=== PATIENT | female | born 1960 | race Caucasian/White ===

== ENCOUNTER 2023-12-13 10:47 | Outpatient (AMB) | payer OTHER, SELFPAY ==
--- NOTE | 2023-12-13 09:19 | MHC.PC.OV ---
Vital Signs 12/13/23 10:58 Height 5 ft 3.19 in Weight 181 lb 8 oz BMI 32.0 BP 114/70 Blood Pressure Location Lt brachial Position Sitting Respiration 16 Pulse 56 Pulse Source Pulse Oximeter Temp 98.2 F Temp Source Oral Pulse Oximetry (%) 98 Oxygen Delivery Method Room Air Intake Visit Reasons: V[facility] from [facility] Intake Note: New patient visit Allergies codeine Allergy (Unknown, Verified 12/13/23 09:20) lightheaded Medication List - Last Reconciled 12/13/23 by Chelo Krishnan PA-C anastrozole 1 mg PO DAILY cholecalciferol (vitamin D3) 25 mcg PO DAILY ferrous sulfate 325 mg PO DAILY ibuprofen 800 mg PO TID oxybutynin chloride ER 10 mg PO DAILY Tobacco use date assessed: 12/13/23 Dental Screening Dental Screen Date: 12/13/23 Did you have a dental visit in the last 12 months?: No Did you have a dental problem in the last 6 months where you did not have access to dental care?: No Was dental information given to patient?: Patient has dentist HPI VICENTE from [facility] HPI Details Patient is a 63-year-old female with a significant past medical history of bariatric surgery, anemia, overactive bladder, psoriasis presenting [facility] to [facility]. Last seen by myself 04/2023. She states since I last saw her she had a double mastectomy for new diagnosis of breast ca. She states 10/04/23 she had the double mastectomy. She states they found a left breast mass over the spring and it was found to be cancerous. She is following with breast center, Dr. Hayward and oncology Dr. Ba. She is now on anastrazole. She has an appointment with [facility] for her colonoscopy this month. Urology: On oxybutynin for oab. She rescheduled the u/s of her right renal mass to later this summer. She states that they told her it was just a collection of blood vessels. She did have MRI of abdomen which showed she states was overall normal. We have requested records today. She has a history of obesity and did have gastric by-pass surgery with success with her weight loss. She states that since she got diagnosed with a breast cancer and being placed on the anastrozole and quitting smoking in September she has gained weight. She is very uncomfortable with this weight gain and wants to lose it again. She states that she wants to go on Wegovy. She has family members on Wegovy and it was effective for them. She has tried countless diets, low carb, [place], Atkins etc.. She says that she has tried weight watchers in the past. She tries to remain very active. Colonoscopy: scheduled at [facility] Mammo: see above Bone density: scheduled this month Low dose chest ct: wnl, following annually at [facility] Medical History (Updated 12/13/23 @ 13:09 by Chelo Krishnan PA-C) Vitamin D deficiency Vitamin B deficiency Tobacco use Shingles RLS (restless legs syndrome) Psoriasis Overactive bladder Hyponatremia Eczema Candidiasis, cutaneous Family History (Updated 12/13/23 @ 09:24 by Amy Queen CMA) Other Breast cancer Social History (Updated 12/13/23 @ 10:56 by Amy Queen CMA) Housing: House Patient Tobacco Use Status: Former Tobacco user Cigarette Packs Per Day: 1 Years Smoked: 40 e-Cigarette/Vaping Use: Never Used service: No Current occupational status: employed Current occupation: corrugated fastener driver Current occupational exposures/hazards: No Cognitive needs: No Hearing needs: No Vision needs: Yes (glasses) Questionnaire PHQ-9 Over the last 2 weeks, how often have you been bothered by any of the following problems? 1. Little interest or pleasure in doing things: not at all 2. Feeling down, depressed, or hopeless: not at all 3. Trouble falling or staying asleep, or sleeping too much: not at all 4. Feeling tired or having little energy: not at all 5. Poor appetite or overeating: not at all 6. Feeling bad about yourself - or that you are a failure or have let yourself or your family down: not at all 7. Trouble concentrating on things, such as reading the newspaper or watching television: not at all 8. Moving or speaking so slowly that other people could have noticed. Or the opposite - being so fidgety or restless that you have been moving around a lot more than usual: not at all 9. Thoughts that you would be better off or of hurting yourself in some way: not at all Total score: 0 Depression Screening Interpretation: Negative Depression Screening Done: Yes 89096 - PHQ-9 Billing: Yes Source: Developed by Drs. Guero Freeman, Gigi Scott and colleagues, with an educational alecia from [employer]. Thrive Questionnaire I am a: Patient What is your living situation today?: I have a steady place to live Within the past 12 months, did the food you bought not last and you didn't have the money to get more?: Never true Within the past 12 months, did you worry whether your food would run out before you got money to buy more?: Never true Do you have trouble paying for medicines?: No Do you have trouble getting transportation to medical appointments?: No Do you have trouble paying your heating and electricity bill?: No Do you have trouble taking care of your child, family member or friend?: No Do you have trouble with day-to-day activities such as bathing, preparing meals, shopping, managing finances, etc.?: No Are you currently unemployed and looking for a job?: No Are you interested in more education?: No Please select the resources that you would like help with: None Currently or been in a relationship where the following occur: No concerns reported THRIVE Score: 0 AUDIT C Alcohol Use Questionnaire (AUDIT-C) 1. How often do you have a drink containing alcohol?: Monthly or less 2. How many drinks containing alcohol do you have on a typical day when you are drinking?: 1 or 2 3. How often do you have six or more drinks on one occasion?: Never Total Score: 1 Score Reviewed/Action Taken: Yes UMESH-7 AMB Questionnaire UMESH-7 Feeling nervous, anxious, or on edge: 0 = Not at all Not being able to stop or control worryin = Not at all Worrying too much about different things: 0 = Not at all Trouble relaxin = Not at all Being so restless that it is hard to sit still: 0 = Not at all Becoming easily annoyed or irritable: 0 = Not at all Feeling afraid as if something awful might happen: 0 = Not at all Total UMESH-7 score (0-4 normal; 5-9 mild; 10-14 moderate; 15-21 severe): 0 Source: Developed by Susannah Barron Kurt Kroenke and colleagues, with an educational alecia from [employer]. UMESH-7 Assessment Billing UMESH-7 Assessment Tool: UMESH-7 Assessment 50527 ACT Questionnaire In the past 4 weeks, how much of the time did your asthma keep you from getting as much done at work, school or at home?: A little of the time During the past 4 weeks, how often have you had shortness of breath?: 1-2 times a week During the past 4 weeks, how often did your asthma symptoms wake you up at night or earlier than usual in the morning?: Not at all During the past 4 weeks, how often have you had to use your rescue inhaler or nebulizer medication?: Once a week or less How would you rate your asthma control during the past 4 weeks?: Well controlled ACT Interpretation: Positive Score: 21 Physical exam (Primary Care) Vital Signs: Last Vital Signs Temp 98.2 F 12/13/23 10:58 Pulse 56 12/13/23 10:58 Resp 16 12/13/23 10:58 BP 114/70 12/13/23 10:58 Pulse Ox 98 12/13/23 10:58 Oxygen Delivery Method Room Air 12/13/23 10:58 BMI result Body Mass Index 32.0 BMI Assessment/Plan discussion: High (wegovy rx) BMI High, discussed plan: lifestyle, weight reduction, dietary and physical activity Tobacco/Smoking Status: Tobacco use Status Tobacco use date assessed 12/13/23 12/13/23 11:02 Patient Tobacco Use Status Former Tobacco user 12/13/23 11:02 e-Cigarette/Vaping Use Never Used 12/13/23 11:02 Depression Screening Interpretation: Negative Currently or been in a relationship where the following occur: No concerns reported Const Orientation/consciousness: patient oriented x3 HENMT Ears: hearing grossly normal bilaterally Neck Thyroid: Thyroid normal Lymphatic: no lymphadenopathy noted Resp Auscultation: clear to auscultation bilaterally Cardio Rate: regular rate Rhythm: regular rhythm Heart sounds: S1 normal heart sound present and S2 normal heart sound present GI Inspection: Yes normal to inspection Palpation (GI): Soft to palpation and Other GI palpation findings present (nontender, no cva tenderness) Auscultation: normoactive bowel sounds Rectal Exam - Female: deferred Skin General skin exam: no rashes or lesions noted Neuro General: patient oriented x3, gait normal and no focal motor deficits Assessment and Plan Assessment & Plan (1) Vitamin B deficiency: Code(s): E53.9 - Vitamin B deficiency, unspecified Plan: We will check labs today (2) S/P bariatric surgery: Code(s): Z98.84 - Bariatric surgery status Plan: She does have some weight gain again and attributes this to smoking cessation and anastrozole. We will start on Wegovy. We discussed risks and benefits and adverse effects at length of this medication including nausea, vomiting, pancreatitis, thyroid malignancies. (3) Breast cancer, left: Code(s): C50.912 - Malignant neoplasm of unspecified site of left female breast Qualifiers: Breast location: unspecified site of breast Estrogen receptor status: unspecified Patient sex: female Qualified Code(s): C50.912 - Malignant neoplasm of unspecified site of left female breast Plan: Currently following with Heme-Onc and the breast surgeons. Advised to get records. (4) DARSHANA (iron deficiency anemia): Code(s): D50.9 - Iron deficiency anemia, unspecified Qualifiers: Iron deficiency anemia type: unspecified iron deficiency Qualified Code(s): D50.9 - Iron deficiency anemia, unspecified Plan: We will check CBC. (5) Obesity (BMI 30.0-34.9): Code(s): E66.9 - Obesity, unspecified Plan: Discussed diet and lifestyle modifications. Return in a few months to be rechecked. I have started her on Wegovy. Patient understands and agrees with the plan. Orders: Orders Complete Blood Count Auto Diff Today C50.912 - Malignant neoplasm of unspecified site of left female breast, D50.9 - Iron deficiency anemia, unspecified, E53.9 - Vitamin B deficiency, unspecified, Z98.84 - Bariatric surgery status IRON PROFILE Today C50.912 - Malignant neoplasm of unspecified site of left female breast, D50.9 - Iron deficiency anemia, unspecified, E53.9 - Vitamin B deficiency, unspecified, Z98.84 - Bariatric surgery status Comprehensive [place]. Panel Fast Today C50.912 - Malignant neoplasm of unspecified site of left female breast, D50.9 - Iron deficiency anemia, unspecified, E53.9 - Vitamin B deficiency, unspecified, Z98.84 - Bariatric surgery status Lipid Panel Today C50.912 - Malignant neoplasm of unspecified site of left female breast, D50.9 - Iron deficiency anemia, unspecified, E53.9 - Vitamin B deficiency, unspecified, Z98.84 - Bariatric surgery status TSH reflex Free T4 Today C50.912 - Malignant neoplasm of unspecified site of left female breast, D50.9 - Iron deficiency anemia, unspecified, E53.9 - Vitamin B deficiency, unspecified, Z98.84 - Bariatric surgery status Vitamin B12 and Folate Today C50.912 - Malignant neoplasm of unspecified site of left female breast, D50.9 - Iron deficiency anemia, unspecified, E53.9 - Vitamin B deficiency, unspecified, Z98.84 - Bariatric surgery status Medications: New semaglutide (weight loss) (Dave) administer weeks 1 through 4 of therapy 0.25 mg (0.5 mL) subcut QWEEK 2 mL 0RF Coding Level of Care Code Est Pt Level 4 (71423) Complex EM visit Add On G2211 Diagnoses Vitamin B deficiency E53.9 S/P bariatric surgery Z98.84 Malignant neoplasm of left female breast, unspecified estrogen receptor status, unspecified site of breast C50.912 Breast location: unspecified site of breast Estrogen receptor status: unspecified Patient sex: female Iron deficiency anemia, unspecified iron deficiency anemia type D50.9 Iron deficiency anemia type: unspecified iron deficiency Obesity (BMI 30.0-34.9) E66.9 Additional Codes UMESH-7 Assessment Billing - UMESH-7 Assessment Tool: UMESH-7 Assessment 72502 ([id number])
[2023-12-13 10:58] VITALS: BP 114/70; PULSE 56; RESP 16; TEMP 36.8; O2SAT 98; BMI 32.0
== END 2023-12-13 11:54 | disposition home or self-care (01) ==
PROVIDERS: PCP Physician Assistant; Visit Provider Physician Assistant
DX: E53.9 Vitamin B deficiency, unspecified (principal); Z98.84 Bariatric surgery status; C50.912 Malignant neoplasm of unspecified site of left female breast; D50.9 Iron deficiency anemia, unspecified; E66.9 Obesity, unspecified
CPT/HCPCS: 99214; G2211

== ENCOUNTER 2023-12-26 08:40 | Outpatient (REF) | payer OTHER, SELFPAY ==
[2023-12-26 11:14] LABS: MANUAL DIFF FLAG NO
[2023-12-26 11:31] LABS: Basophils Absolute Auto 0.1 X10*3/uL (0.0-0.2); Basophils Percent Auto 0.6 % (0-2); Eosinophils Absolute Auto 0.1 X10*3/uL (0.0-0.4); Eosinophils Percent Auto 0.9 % (0-4); Hematocrit 38.9 % (37.0-47.0); Hemoglobin 12.9 g/dl (12.0-16.0); Imm Gran Abs Auto 0.03 X10*3/uL (0.00-0.03); Imm Gran Pct Auto 0.3 % (0.0-0.4); Lymphocytes Absolute Auto 0.9 X10*3/uL (1.2-4.9); Lymphocytes Percent Auto 9.8 % (20-40); Mean Corpuscular HGB Conc 33.2 g/dl (31.0-35.0); Mean Corpuscular Hemoglobin 30.9 pg (27.0-33.0); Mean Corpuscular Volume 93.3 fL (80.0-98.0); Mean Platelet Volume 10.9 fL (9.4-12.3); Monocytes Absolute Auto 0.7 X10*3/uL (0.1-1.2); Neutrophils Percent Auto 80.4 % (45-73); Platelet Count 236 X10*3/uL (160-400); Red Blood Count 4.17 X10*6/uL (4.20-5.50); Red Cell Distribution Width 14.8 % (11.0-16.0); White Blood Count 8.8 X10*3/uL (4.8-10.8)
[2023-12-26 12:02] LABS: Alanine Aminotransferase 20 U/L (0-31); Alkaline Phosphatase 76 U/L (39-117); Anion Gap 14 (12-20); Aspartate Amino Transferase 24 U/L (5-31); Bilirubin Total 0.6 mg/dL (0.0-1.0); Blood Urea Nitrogen 8 mg/dL (9-16); Carbon Dioxide 26 mmol/L (22-29); Chloride 103 mmol/L (96-108); Cholesterol 194 mg/dL (<200); Estimated Glomerular Filt Rate > 60; Glucose Fasting 87 mg/dL (60-99); HDL Cholesterol 85 mg/dL (>40); Iron 118 mcg/dL (30-160); LDL Cholesterol Calculated 93 mg/dL (<100); Percent Iron Saturation 32 % (15-50); Potassium 4.6 mmol/L (3.3-5.1); Sodium 138 mmol/L (135-145); Total Iron Binding Capacity 369 mcg/dL (228-428); Total Protein 7.2 g/dL (6.5-8.0); Triglycerides 81 mg/dL (<150); Unsaturated Iron Binding 251 ug/dL
[2023-12-26 12:22] LABS: TSH reflex Free T4 2.14 uIU/mL (0.32-4.0)
[2023-12-26 12:24] LABS: Folate 8.1 ng/mL (> or = 4.0); Vitamin B12 334 pg/mL (200-900)
== END 2023-12-26 08:41 | disposition home or self-care (01) ==
LOC: HO.WFDLDS 08:40
PROVIDERS: Visit Provider Physician Assistant
DX: E53.9 Vitamin B deficiency, unspecified (principal); D50.9 Iron deficiency anemia, unspecified; C50.912 Malignant neoplasm of unspecified site of left female breast; Z98.84 Bariatric surgery status
CPT/HCPCS: 36415; 80053; 80061; 82607; 82746; 83540; 84443; 85025

== ENCOUNTER 2024-03-07 10:00 | Outpatient (AMB) | payer OTHER, SELFPAY ==
--- NOTE | 2024-03-07 10:05 | A.OFFPC_ITS ---
Vital Signs 03/07/24 10:06 Height 5 ft 3.19 in Weight 173 lb BMI 30.5 BP 100/78 Blood Pressure Location Rt brachial Position Sitting Pulse Source Pulse Oximeter Pulse Oximetry (%) 99 Oxygen Delivery Method Room Air Intake Visit Reasons: weight loss med Intake Note: Follow up weight loss medication Allergies codeine Allergy (Unknown, Verified 03/07/24 10:06) lightheaded Medication List - Last Reconciled 03/07/24 by Chelo Krishnan PA-C anastrozole 1 mg PO DAILY cholecalciferol (vitamin D3) 25 mcg PO DAILY ferrous sulfate 325 mg PO DAILY hydroxyzine HCl 25 mg PO BEDTIME ibuprofen 800 mg PO TID oxybutynin chloride ER 10 mg PO DAILY Tobacco use date assessed: 12/13/23 Dental Screening Dental Screen Date: 12/13/23 HPI weight loss med HPI Details Patient is a 63-year-old female who presents today for a follow up. She has a significant past medical history of breast cancer, vitamin-D deficiency, gastric sleeve, overactive bladder presenting today to discuss her weight loss. She states that she is doing well with the Wegovy and wants to go up on the medication dosage. She is currently on 0.5 mg weekly. No adverse effects. Would like to go to 1 mg. She has lost 11 lb so far. Doing well with breast cancer treatment. States that she currently has expanders in and next month she will be getting implants. Has MRI booked for her kidney mass. She is doing this at [place]. Compliant with her iron supplements. 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 1. Little interest or pleasure in doing things: not at all 2. Feeling down, depressed, or hopeless: not at all 3. Trouble falling or staying asleep, or sleeping too much: nearly every day 4. Feeling tired or having little energy: nearly every day 5. Poor appetite or overeating: not at all 6. Feeling bad about yourself - or that you are a failure or have let yourself or your family down: not at all 7. Trouble concentrating on things, such as reading the newspaper or watching television: not at all 8. Moving or speaking so slowly that other people could have noticed. Or the opposite - being so fidgety or restless that you have been moving around a lot more than usual: not at all 9. Thoughts that you would be better off or of hurting yourself in some way: not at all Total score: 6 Source: Developed by Drs. Guero Freeman, Susannah Tellez, Gigi Montgomery and colleagues, with an educational alecia from [employer] [place]. Thrive Questionnaire Date Thrive assessed: 02/29/24 I am a: Patient What is your living situation today?: I have a steady place to live Within the past 12 months, did the food you bought not last and you didn't have the money to get more?: Never true Within the past 12 months, did you worry whether your food would run out before you got money to buy more?: Often true Do you have trouble paying for medicines?: Yes Do you have trouble getting transportation to medical appointments?: No Do you have trouble paying your heating and electricity bill?: No Do you have trouble taking care of your child, family member or friend?: No Do you have trouble with day-to-day activities such as bathing, preparing meals, shopping, managing finances, etc.?: No Are you currently unemployed and looking for a job?: No Are you interested in more education?: No Please select the resources that you would like help with: None Currently or been in a relationship where the following occur: No concerns reported THRIVE Score: 1 AUDIT C Alcohol Use Questionnaire (AUDIT-C) 2. How many drinks containing alcohol do you have on a typical day when you are drinking?: 1 or 2 Total Score: 0 UMESH-7 AMB Questionnaire UMESH-7 Feeling nervous, anxious, or on edge: 0 = Not at all Not being able to stop or control worryin = Not at all Worrying too much about different things: 0 = Not at all Trouble relaxin = Not at all Being so restless that it is hard to sit still: 0 = Not at all Becoming easily annoyed or irritable: 0 = Not at all Feeling afraid as if something awful might happen: 0 = Not at all Total UMESH-7 score (0-4 normal; 5-9 mild; 10-14 moderate; 15-21 severe): 0 Source: Developed by Drs. Guero Freeman, Susannah Tellez, Gigi Montgomery and colleagues, with an educational alecia from [employer] [place]. Physical exam (Primary Care) Vital Signs: Last Vital Signs BP 100/78 03/07/24 10:06 Pulse Ox 99 03/07/24 10:06 Oxygen Delivery Method Room Air 03/07/24 10:06 BMI result Body Mass Index 30.5 Tobacco/Smoking Status: Tobacco use Status Tobacco use date assessed 12/13/23 03/07/24 10:09 Patient Tobacco Use Status Former Tobacco user 03/07/24 10:09 e-Cigarette/Vaping Use Never Used 03/07/24 10:09 PHQ-9: PHQ-9 Score PHQ-9: Total score 6 03/07/24 10:41 Thrive Assessment: Date of Thrive Assessment Date Thrive assessed 02/29/24 03/07/24 10:09 Currently or been in a relationship where the following occur: No concerns reported Const Orientation/consciousness: patient oriented x3 HENMT Ears: hearing grossly normal bilaterally Neck Thyroid: Thyroid normal Lymphatic: no lymphadenopathy noted Resp Auscultation: clear to auscultation bilaterally Cardio Rate: regular rate Rhythm: regular rhythm Heart sounds: S1 normal heart sound present and S2 normal heart sound present GI Inspection: Yes normal to inspection Palpation (GI): Soft to palpation and Other GI palpation findings present (nontender, no cva tenderness) Auscultation: normoactive bowel sounds Rectal Exam - Female: deferred Skin General skin exam: no rashes or lesions noted Neuro General: patient oriented x3, gait normal and no focal motor deficits Coding Level of Care Code Est Pt Level 4 (27736) Complex EM visit Add On G2211 Diagnoses Obesity (BMI 30.0-34.9) E66.9 Iron deficiency anemia, unspecified iron deficiency anemia type D50.9 Iron deficiency anemia type: unspecified iron deficiency Renal mass N28.89 Assessment & Plan Assessment & Plan (1) Obesity (BMI 30.0-34.9): Code(s): E66.9 - Obesity, unspecified Category: Medical Plan: Increase Wegovy to 1 mg. (2) DARSHANA (iron deficiency anemia): Code(s): D50.9 - Iron deficiency anemia, unspecified Category: Medical Qualifiers: Iron deficiency anemia type: unspecified iron deficiency Qualified Code(s): D50.9 - Iron deficiency anemia, unspecified Plan: Labs ordered today. We will follow up pending test results. (3) Renal mass: Code(s): N28.89 - Other specified disorders of kidney and ureter Category: Medical Plan: Has MRI booked. Orders: Orders Basic Metabolic Panel Today E66.9 - Obesity, unspecified, Z98.84 - Bariatric surgery status Complete Blood Count Auto Diff Today D50.9 - Iron deficiency anemia, unspecified Medications: New semaglutide (weight loss) (Wegovy) 1 mg (0.5 mL) subcut QWEEK 2 mL 3RF semaglutide (weight loss) (Wegovy) 1 mg (0.5 mL) subcut QWEEK 2 mL 3RF
[2024-03-07 10:06] VITALS: BP 100/78; O2SAT 99; BMI 30.5
== END 2024-03-07 10:54 | disposition home or self-care (01) ==
LOC: HO.HMCFM 10:00
PROVIDERS: PCP Physician Assistant; Visit Provider Physician Assistant
DX: D50.9 Iron deficiency anemia, unspecified (principal); E66.9 Obesity, unspecified; N28.89 Other specified disorders of kidney and ureter; Z68.30 Body mass index [BMI] 30.0-30.9, adult

== ENCOUNTER → 2024-03-07 10:00 | Outpatient (BNVA) | payer OTHER, SELFPAY | PROVIDERS: PCP Physician Assistant; Visit Provider Physician Assistant | DX: E66.9 Obesity, unspecified (principal); D50.9 Iron deficiency anemia, unspecified; N28.89 Other specified disorders of kidney and ureter | CPT/HCPCS: 99212 ==

== ENCOUNTER 2024-03-07 11:11 | Outpatient (REF) | payer OTHER, SELFPAY ==
[2024-03-07 14:25] LABS: MANUAL DIFF FLAG NO
[2024-03-07 14:28] LABS: Basophils Percent Auto 0.8 % (0-2); Eosinophils Absolute Auto 0.1 X10*3/uL (0.0-0.4); Eosinophils Percent Auto 2.7 % (0-4); Hematocrit 42.7 % (37.0-47.0); Hemoglobin 13.9 g/dl (12.0-16.0); Imm Gran Abs Auto 0.01 X10*3/uL (0.00-0.03); Imm Gran Pct Auto 0.2 % (0.0-0.4); Lymphocytes Absolute Auto 1.6 X10*3/uL (1.2-4.9); Lymphocytes Percent Auto 30.5 % (20-40); Mean Corpuscular HGB Conc 32.6 g/dl (31.0-35.0); Mean Corpuscular Hemoglobin 29.9 pg (27.0-33.0); Mean Corpuscular Volume 91.8 fL (80.0-98.0); Mean Platelet Volume 10.9 fL (9.4-12.3); Monocytes Absolute Auto 0.5 X10*3/uL (0.1-1.2); Monocytes Percent Auto 10.1 % (2-11); Neutrophils Absolute Auto 2.9 x10*3/uL (2.0-8.3); Neutrophils Percent Auto 55.7 % (45-73); Platelet Count 264 X10*3/uL (160-400); Red Blood Count 4.65 X10*6/uL (4.20-5.50); Red Cell Distribution Width 13.8 % (11.0-16.0); White Blood Count 5.2 X10*3/uL (4.8-10.8)
[2024-03-07 14:49] LABS: Anion Gap 11 (12-20); Blood Urea Nitrogen 11 mg/dL (9-16); Calcium 9.8 mg/dL (8.4-10.2); Carbon Dioxide 25 mmol/L (22-29); Chloride 103 mmol/L (96-108); Estimated Glomerular Filt Rate > 60; Glucose Random 88 mg/dL (60-115); Sodium 135 mmol/L (135-145)
== END 2024-03-07 11:12 | disposition home or self-care (01) ==
LOC: HO.WFDLDS 11:11
PROVIDERS: Visit Provider Physician Assistant
DX: E66.9 Obesity, unspecified (principal); Z98.84 Bariatric surgery status; D50.9 Iron deficiency anemia, unspecified
CPT/HCPCS: 36415; 80048; 85025

== ENCOUNTER 2024-06-05 09:38 | Outpatient (AMB) | payer OTHER, SELFPAY ==
--- NOTE | 2024-06-05 09:47 | A.OFFPC_ITS ---
Vital Signs 06/05/24 09:54 Height 5 ft 3.19 in Weight 178 lb 8 oz BMI 31.4 BP 102/72 Blood Pressure Location Rt brachial Position Sitting Respiration 14 Pulse 58 Pulse Source Pulse Oximeter Pulse Oximetry (%) 99 Oxygen Delivery Method Room Air Intake Visit Reasons: labs Intake Note: Follow up lab work. Needs referral to plastic surgeon Dr Stephens at [facility]. Needs a refill on all medication. Dental Detail Representative Required: No Allergies codeine Allergy (Unknown, Verified 06/05/24 09:50) lightheaded Medication List - Last Reconciled 06/05/24 by Chelo Krishnan PA-C albuterol sulfate 90 mcg/actuation inhalation cholecalciferol (vitamin D3) 25 mcg PO DAILY ferrous sulfate 325 mg PO DAILY hydroxyzine HCl 25 mg PO BEDTIME ibuprofen 800 mg PO TID oxybutynin chloride ER 10 mg PO DAILY Tobacco use date assessed: 06/05/24 Dental Screening Dental Screen Date: 12/13/23 HPI labs HPI Details Patient is a 63-year-old female who presents today for a follow up. She has a significant past medical history of breast cancer, vitamin-D deficiency, gastric sleeve, overactive bladder presenting today to discuss her weight loss. General: She states that she was doing well with the Wegovy but insurance denied at the new year. She is filling out the questionaire and we will resubmit it. She lost a total of 18 lbs with this. She has a history of obesity and did have gastric by-pass surgery with success with her weight loss. She states that since she got diagnosed with a breast ca ncer and being placed on the anastrozole and quitting smoking in September she has gained weight. She is very uncomfortable with this weight gain and wants to lose it again. She states that she wants to go on Wegovy. She has family members on [employer] Salongovy and it was effective for them. She has tried countless diets, low carb, [place], Atkins etc.. She says that she has tried weight watchers in the past. She tries to remain very active. Breast: Doing well with breast cancer treatment. States that she currently has expanders in and is getting them filled. At the end of August they are tentatively planning implants. She would also like to get the excess skin of her stomach removed. When she had gastric bypass she lost a significant amount of weight which did leave her with loose skin. She often gets yeast infections under her pannus. Urology: Had MRI booked for her kidney mass but had to have it rescheduled due to her breast surgeries. She is doing this at [place]. Heme: Compliant with her iron supplements. Colonoscopy: scheduled for this spring Low dose chest ct: UTD, follows at [facility] Medical History (Updated 06/05/24 @ 10:17 by Chelo Krishnan PA-C) Vitamin D deficiency Vitamin B deficiency Tobacco use Shingles RLS (restless legs syndrome) Psoriasis Overactive bladder Hyponatremia Eczema Candidiasis, cutaneous Family History Other Breast cancer Social History (Updated 06/05/24 @ 09:54 by Amy Queen CMA) Housing: House Alcohol intake: current Comment: once in awhile three drinks a year Patient Tobacco Use Status: Current everyday Tobacco user Cigarette Packs Per Day: 0.5 Years Smoked: 40 e-Cigarette/Vaping Use: Never Used Second Hand Smoke Exposure: No service: No Current occupational status: employed Current occupation: parts delivery driver Current occupational exposures/hazards: No Cognitive needs: No Hearing needs: No Vision needs: Yes (glasses) Questionnaire PHQ-9 Over the last 2 weeks, how often have you been bothered by any of the following problems? 1. Little interest or pleasure in doing things: not at all 2. Feeling down, depressed, or hopeless: not at all 3. Trouble falling or staying asleep, or sleeping too much: nearly every day 4. Feeling tired or having little energy: nearly every day 5. Poor appetite or overeating: not at all 6. Feeling bad about yourself - or that you are a failure or have let yourself or your family down: not at all 7. Trouble concentrating on things, such as reading the newspaper or watching television: not at all 8. Moving or speaking so slowly that other people could have noticed. Or the opposite - being so fidgety or restless that you have been moving around a lot more than usual: not at all 9. Thoughts that you would be better off or of hurting yourself in some way: not at all Total score: 6 Depression Screening Interpretation: Positive Depression Screening Follow-up: Existing condition and New Medication prescribed Depression Screening Done: Yes 99540 - PHQ-9 Billing: Yes Source: Developed by Drs. Guero Freeman, Susannah Tellez, Gigi Montgomery and colleagues, with an educational alecia from [employer]. Thrive Questionnaire Date Thrive assessed: 06/05/24 I am a: Patient What is your living situation today?: I have a steady place to live Within the past 12 months, did the food you bought not last and you didn't have the money to get more?: Never true Within the past 12 months, did you worry whether your food would run out before you got money to buy more?: Never true Do you have trouble paying for medicines?: No Do you have trouble getting transportation to medical appointments?: No Do you have trouble paying your heating and electricity bill?: No Do you have trouble taking care of your child, family member or friend?: No Do you have trouble with day-to-day activities such as bathing, preparing meals, shopping, managing finances, etc.?: No Are you currently unemployed and looking for a job?: No Are you interested in more education?: No Please select the resources that you would like help with: None Currently or been in a relationship where the following occur: No concerns reported THRIVE Score: 0 AUDIT C Alcohol Use Questionnaire (AUDIT-C) 1. How often do you have a drink containing alcohol?: Monthly or less 2. How many drinks containing alcohol do you have on a typical day when you are drinking?: 1 or 2 3. How often do you have six or more drinks on one occasion?: Never Total Score: 1 UMESH-7 AMB Questionnaire UMESH-7 Date UMESH - 7 assessed: 06/05/24 Feeling nervous, anxious, or on edge: 0 = Not at all Not being able to stop or control worryin = Not at all Worrying too much about different things: 0 = Not at all Trouble relaxin = Not at all Being so restless that it is hard to sit still: 0 = Not at all Becoming easily annoyed or irritable: 0 = Not at all Feeling afraid as if something awful might happen: 0 = Not at all Total UMESH-7 score (0-4 normal; 5-9 mild; 10-14 moderate; 15-21 severe): 0 Source: Developed by Drs. Guero Freeman, Susannah Tellez, Gigi Montgomery and colleagues, with an educational alecia from [employer]. UMESH-7 Assessment Billing UMESH-7 Assessment Tool: UMESH-7 Assessment 59584 Physical exam (Primary Care) Vital Signs: Last Vital Signs Pulse 58 06/05/24 09:54 Resp 14 06/05/24 09:54 BP 102/72 06/05/24 09:54 Pulse Ox 99 06/05/24 09:54 Oxygen Delivery Method Room Air 06/05/24 09:54 BMI result Body Mass Index 31.4 Tobacco/Smoking Status: Tobacco use Status Tobacco use date assessed 06/05/24 06/05/24 09:58 Patient Tobacco Use Status Current everyday Tobacco 06/05/24 09:58 e-Cigarette/Vaping Use Never Used 06/05/24 09:54 PHQ-9: PHQ-9 Score PHQ-9: Total score 6 06/05/24 10:11 Depression Screening Interpretation: Positive Depression Screening Follow-up: Existing condition and New Medication prescribed Thrive Assessment: Date of Thrive Assessment Date Thrive assessed 06/05/24 06/05/24 09:58 Currently or been in a relationship where the following occur: No concerns reported Const Orientation/consciousness: patient oriented x3 HENMT Ears: hearing grossly normal bilaterally Neck Thyroid: Thyroid normal Lymphatic: no lymphadenopathy noted Resp Auscultation: clear to auscultation bilaterally Cardio Rate: regular rate Rhythm: regular rhythm Heart sounds: S1 normal heart sound present and S2 normal heart sound present GI Inspection: Yes normal to inspection Palpation (GI): Soft to palpation and Other GI palpation findings present (nontender, no cva tenderness) Auscultation: normoactive bowel sounds Rectal Exam - Female: deferred Skin General skin exam: no rashes or lesions noted Neuro General: patient oriented x3, gait normal and no focal motor deficits Results Reviewed Results Reviewed: Laboratory Tests 12/26/23 03/07/24 08:43 11:12 WBC 5.2 RBC 4.65 Hgb 13.9 Hct 42.7 Plt Count 264 Sodium 135 Potassium 4.0 Chloride 103 Creatinine 0.77 Estimated GFR > 60 Random Glucose 88 Triglycerides 81 Cholesterol 194 LDL Cholesterol, Calc 93 HDL Cholesterol 85 Coding Level of Care Code Est Pt Level 4 (46784) Complex EM visit Add On G2211 Diagnoses Malignant neoplasm of left female breast, unspecified estrogen receptor status, unspecified site of breast C50.912 Breast location: unspecified site of breast Estrogen receptor status: unspecified Patient sex: female Renal mass N28.89 S/P bariatric surgery Z98.84 Vitamin B deficiency E53.9 Iron deficiency anemia, unspecified iron deficiency anemia type D50.9 Iron deficiency anemia type: unspecified iron deficiency Excess skin of abdomen L98.7 Additional Codes UMESH-7 Assessment Billing - UMESH-7 Assessment Tool: UMESH-7 Assessment 49549 ([id number]) PHQ-9 - 55254 - PHQ-9 Billing: Yes ([id number]) Assessment & Plan Assessment & Plan (1) Breast cancer, left: Code(s): C50.912 - Malignant neoplasm of unspecified site of left female breast Category: Medical Qualifiers: Breast location: unspecified site of breast Estrogen receptor status: unspecified Patient sex: female Qualified Code(s): C50.912 - Malignant neoplasm of unspecified site of left female breast Plan: Referral to the plastic surgeon. (2) Renal mass: Code(s): N28.89 - Other specified disorders of kidney and ureter Category: Medical Plan: Advised to let me know when she gets her MRI done so I may tell her the test results. She is aware that we do not get results right away from [facility] and that she will have to call me so I can request the records. (3) S/P bariatric surgery: Code(s): Z98.84 - Bariatric surgery status Category: Surgical Plan: We will trial Dave again as she was very effective with this. (4) Vitamin B deficiency: Code(s): E53.9 - Vitamin B deficiency, unspecified Category: Medical Plan: Labs ordered. We will follow up pending test results. (5) DARSHANA (iron deficiency anemia): Code(s): D50.9 - Iron deficiency anemia, unspecified Category: Medical Qualifiers: Iron deficiency anemia type: unspecified iron deficiency Qualified Code(s): D50.9 - Iron deficiency anemia, unspecified Plan: As above (6) Excess skin of abdomen: Code(s): L98.7 - Excessive and redundant skin and subcutaneous tissue Category: Medical Plan: Nystatin cream reordered. Referral to Plastic surgery. Orders: Orders Comprehensive [place]. Panel Fast Today C50.912 - Malignant neoplasm of unspecified site of left female breast, D50.9 - Iron deficiency anemia, unspecified, E53.9 - Vitamin B deficiency, unspecified, L98.7 - Excessive and redundant skin and subcutaneous tissue, N28.89 - Other specified disorders of kidney and ureter, Z98.84 - Bariatric surgery status UA CC w/rflx Micro + Cult Today C50.912 - Malignant neoplasm of unspecified site of left female breast, D50.9 - Iron deficiency anemia, unspecified, E53.9 - Vitamin B deficiency, unspecified, L98.7 - Excessive and redundant skin and subcutaneous tissue, N28.89 - Other specified disorders of kidney and ureter, Z13.220 - Encounter for screening for lipoid disorders, Z98.84 - Bariatric surgery status Complete Blood Count Auto Diff Today C50.912 - Malignant neoplasm of unspecified site of left female breast, D50.9 - Iron deficiency anemia, unspecified, E53.9 - Vitamin B deficiency, unspecified, L98.7 - Excessive and redundant skin and subcutaneous tissue, N28.89 - Other specified disorders of kidney and ureter, Z98.84 - Bariatric surgery status TSH reflex Free T4 Today C50.912 - Malignant neoplasm of unspecified site of left female breast, D50.9 - Iron deficiency anemia, unspecified, E53.9 - Vitamin B deficiency, unspecified, L98.7 - Excessive and redundant skin and subcutaneous tissue, N28.89 - Other specified disorders of kidney and ureter, Z98.84 - Bariatric surgery status Referrals Plastic Surgery Referral C50.912 - Malignant neoplasm of unspecified site of left female breast, L98.7 - Excessive and redundant skin and subcutaneous tissue Medications: New albuterol sulfate 90 mcg/actuation 2 puffs inhalation Q8H PRN 8.5 grams 5RF shortness of breath or wheezing cholecalciferol (vitamin D3) 25 mcg PO DAILY 90 caps 3RF ferrous sulfate 325 mg PO DAILY 90 tabs 3RF nystatin 1 appl topical BID 30 grams 2RF semaglutide (weight loss) (Wegovy) 0.5 mg (0.5 mL) subcut QWEEK 2 mL 1RF Changed From ibuprofen 800 mg PO TID To ibuprofen 800 mg PO TID PRN 90 tabs 1RF fever or pain Refilled hydroxyzine HCl 25 mg PO BEDTIME 90 tabs 3RF oxybutynin chloride ER 10 mg PO DAILY 90 tabs 3RF
[2024-06-05 09:54] VITALS: BP 102/72; PULSE 58; RESP 14; O2SAT 99; BMI 31.4
--- OUTSIDE RECORDS SUMMARY | 2024-06-05 11:16 | XMS_ITS | Continuity of Care Document ---
Author Organization [facility] Cecile angel Address [address] [place] [address] [address] [place] [address]- Care Team Providers Care Jewish History Professor Name Role Phone Chelo Michel Primary Care Physician [phone] Encounter [facility] R [id number] Date(s): 04/29/24 - 05/06/24 [facility] [address] [place] [address]- Attending Physician: Not on Staff, Attending MD Encounter Type: Office Visit Allergies, Adverse Reactions, Alerts Substance Criticality Severity Reaction Reaction Severity Status codeine Dizziness - light-headed Active Immunizations Given and Recorded Vaccine Date Status Refusal Reason influenza virus vaccine, inactivated 04/04/18 Raad rded influenza virus vaccine, inactivated 04/12/16 Raad rded Medications Albuterol (Eqv-ProAir HFA) 90 mcg/inh inhalation aerosol 9 Gm, 0 Refill(s), INHALE 1 PUFF BY MOUTH 4 TIMES DAILY NEEDED FOR WHEEZING, 0 Refills, 01/22/24 2:11:00 PM EDT, Partial fill upon patient request if the prescription is for a schedule II opioid drug. Start Date: 01/22/24 Status: Ordered Repeat number: 1 albuterol CFC free 90 mcg/inh inhalation aerosol 1, puffs, Inhalation, 4 times a day, PRN, # 8.5 Gm, Refills 3, Tot. Refills 3, Maintenance, :10:00 AM EST, Aerosol, Route to Pharmacy Electronically, [id number], [id number], 163, cm, 04/12/23 8:55:00 EST, Height, 73, kg, 02/23/23 23:55:00 EDT, Dry Weight Start Date: 04/12/23 Status: Ordered Quantity: 8.5 Unit: g Repeat number: 4 anastrozole 1 mg oral tablet 1 tablet = 1 mg, By Mouth, Daily, # 30 tablet, 2 Refills, Maintenance, 10/31/23 9:47:00 AM EDT, Tablet, [facility], Partial fill upon patient request if the prescription is for a schedule II opioid drug., 160.4, cm, 10/31/23 8:48:00 EDT, Height, 79.7, kg, 10/31/23 8:48:00 EDT, Dry Weight Start Date: 10/31/23 Status: Ordered Quantity: 30.0 Unit: tablet Repeat number: 3 ferrous sulfate 325 mg oral tablet 1 tablet = 325 mg, By Mouth, Daily, # 90 tablet, 3 Refills, Maintenance, 06/13/23 1:52:00 PM EST, Tablet, [facility], Partial fill upon patient request if the prescription is for a schedule II opioid drug., 163, cm, 06/13/23 13:11:00 EST, Height, 73, kg, 02/23/23 23:55:00 EDT, Dry Weight Start Date: 06/13/23 Status: Ordered Quantity: 90.0 Unit: tablet Repeat number: 4 ibuprofen 800 mg oral tablet 90 each, 0 Refill(s), TAKE 1 TABLET BY MOUTH THREE TIMES DAILY, Refills 0, 02/09/24 10:00:00 AM EDT,Partial fill upon patient request if the prescription is for a schedule II opioid drug. Start Date: 02/09/24 Status: Ordered Repeat number: 1 oxybutynin 10 mg/24 hr oral tablet, extended release 1 tablet, By Mouth, Daily, # 30 tablet, 0 Refills, Maintenance, 12/09/23 8:08:00 AM EDT, [facility], 160.4, cm, 11/16/23 14:20:00 EDT, Height, 79.7, kg, 10/31/23 8:48:00 EDT, Dry Weight Start Date: 12/09/23 Status: Ordered Quantity: 30.0 Unit: tablet Repeat number: 1 rOPINIRole 3 mg oral tablet 1 tablet = 3 mg, By Mouth, Daily at bedtime, # 90 tablet, 2 Refills, Maintenance, 10/22/21 8:40:00 AM EDT, [facility], Partial fill upon patient request if the prescription is for a schedule II opioid drug. Start Date: 10/22/21 Status: Ordered Quantity: 90.0 Unit: tablet Repeat number: 3 Vitamin D3 1000 intl units oral capsule 1 capsule = 25 mcg, By Mouth, Daily, # 100 capsule, 3 Refills, Maintenance, 04/12/23 9:11:00 AM EST,Capsule, [facility], Partial fill upon patient request if the prescription is for a schedule II opioid drug., 163, cm, 04/12/23 8:55:00 EST, Height, 73, kg, 02/23/23 23:55:00 EDT, Dry Weight Start Date: 04/12/23 Status: Ordered Quantity: 100.0 Unit: capsule Repeat number: 4 Wegovy (1 mg dose) subcutaneous solution = 1 mg, Subcutaneous Injection, Every week, in the abdomen, thigh, or upper arm, # 2 mL, 0 Refills,Maintenance, 03/08/24 10:34:00 AM EDT, Solution, Partial fill upon patient request if the prescription is for a schedule II opioid drug. Start Date: 03/08/24 Stop Date: 04/05/24 Status: Ordered Quantity: 2.0 Unit: mL Repeat number: 1 Problem List Condition Confirmation Course Effective Dates Status Health St atus Informant Psoriasis-like skin disease Confirmed Active Vitamin B2 deficiency Confirmed Active Candidiasis, cutaneous Confirmed Active Benign cyst of right breast Confirmed Active Eczema Confirmed Active Family history of breast cancer Confirmed Active Shingles Confirmed Active S/P gastric bypass Confirmed Active Hyponatremia Confirmed Active Insomnia Confirmed Active Breast cancer of lower-outer quadrant of left female breast Confirmed Active Overactive bladder Confirmed Active Malignant neoplasm of overlapping sites of left breast in female, estrogen receptor positive Confirmed Active Right renal mass Confirmed Active RLS (restless legs syndrome) Confirmed Active Tobacco abuse Confirmed Active Vitamin D deficiency Confirmed Active Vital Signs Most recent to oldest [Reference Range]: 1 Height 163 cm (04/29/24 10:36 AM) Weight 76 kg (04/29/24 10:36 AM) Body Mass Index [18.5-24.99 kg/m2] 28.6 kg/m2 *H* (04/29/24 10:36 AM) Social History Social History Type Response Smoking Status Former smoker, quit more than 30 days ago; Other: quit a few days ago; entered on: 09/26/23 Sex Sex Representation Female (finding) Implantable Device List Procedure Provider Procedure Date Device Type Site Insertion of Tissue Landscape Artist Sasha Stephens MD 04/17/24 Unknown Breast Left Device Identifier Serial Number Lot or Batch Number Manufacturing Date Expiration Date Distinct Identification Code MRI Safety Implantable Status Assigning Authority Unknown [id number] Unknown Unknown 09/04/27 Unknown Unknown Active Unknown Procedure Provider Procedure Date Device Type Site Insertion of Tissue Landscape Artist Sasha Stephens MD 01/31/24 Unknown Breast Left Device Identifier Serial Number Lot or Batch Number Manufacturing Date Expiration Date Distinct Identification Code MRI Safety Implantable Status Assigning Authority Unknown [id number] Unknown Unknown 01/15/27 Unknown Unknown Active Unknown Unknown [id number] Unknown Unknown 01/15/27 Unknown Unknown Active Unknown Patient Care team information Care Team Personnel Name: Kaitlin Zhang Position: [facility] Associate Professional Member Role: [employer] Provider Address: [address] [place] [address] Plastic & [place] [address]- Telecom: Name: Chelo Michel Position: Reference Physician Member Role: PCP Address: [address] [place] [id number]- Telecom: Name: Caroline Colon RN Position: [facility] RN Member Role: Primary Care Nurse Care Team Related Persons Name: COLEEN AGUILLON Insurance Providers Guarantor name: [employer]Y [employer] [facility] Plan Information #: 1 Payer: [employer] Member Number: [id number] Policy Number: NA Group Number: NA Health Plan Information #: 2 Payer: [employer] Member Number: [id number] Policy Number: NA Group Number: NA
--- OUTSIDE RECORDS SUMMARY | 2024-06-05 11:16 | XMS_ITS | Continuity of Care Document ---
Author Organization [facility] Cecile angel Address [address] [place] [address] [address] [place] [address]- Care Team Providers Care Shoulder Sawyer Name Role Phone Chelo Michel Primary Care Physician Encounter [facility] Date(s): 05/07/24 - 05/14/24 [facility] [address] [place] [address]- Attending Physician: Not on Staff, Attending MD [...] AM EST, Aerosol, Route to Pharmacy Electronically, [id number], [facility], 163, cm, 04/12/23 8:55:00 EST, Height, 73, kg, 02/23/23 23:55:00 EDT, Dry Weight Start Date: 04/12/23 Status: Ordered Quantity: 8.5 Unit: g Repeat number: 4 anastrozole 1 mg oral tablet 1 tablet = 1 mg, By Mouth, Daily, # 30 tablet, 2 Refills, Maintenance, 10/31/23 9:47:00 AM EDT, Tablet, [facility], Partial fill upon patient request [...] Refills, Maintenance, 06/13/23 1:52:00 PM EST, Tablet, [facility], Partial fill upon patient request if the prescription is for a schedule II opioid drug., 163, cm, 06/13/23 13:11:00 EST, Height, 73, kg, 02/23/23 23:55:00 EDT, Dry Weight Start Date: 06/13/23 Status: Ordered Quantity: 90.0 Unit: tablet Repeat number: 4 hydrOXYzine hydrochloride 25 mg oral tablet 30 each, 0 Refill(s), TAKE 1 TABLET BY MOUTH AT BEDTIME, 0 Refills, 05/07/24 10:56:00 AM EST, Partial fill upon patient request if the prescription is for a schedule II opioid drug. Start Date: 05/07/24 Status: Ordered Repeat number: 1 ibuprofen 800 mg oral tablet 90 each, [...] 0 Refills, Maintenance, 12/09/23 8:08:00 AM EDT, [facility], 160.4, cm, 11/16/23 14:20:00 EDT, Height, 79.7, kg, 10/31/23 8:48:00 EDT, Dry Weight Start Date: 12/09/23 Status: Ordered Quantity: 30.0 Unit: tablet Repeat number: 1 rOPINIRole 3 mg oral tablet 1 tablet = 3 mg, By Mouth, Daily at bedtime, # 90 tablet, 2 Refills, Maintenance, 10/22/21 8:40:00 AM EDT, [facility], Partial fill upon patient request if the prescription is for a schedule II opioid drug. Start Date: 10/22/21 Status: Ordered Quantity: 90.0 Unit: tablet Repeat number: 3 Vitamin D3 1000 intl units oral capsule 1 capsule = 25 mcg, By Mouth, Daily, # 100 capsule, 3 Refills, Maintenance, 04/12/23 9:11:00 AM EST,Capsule, [facility], Partial fill upon patient request [...] oldest [Reference Range]: 1 Height 163 cm (05/07/24 10:56 AM) Weight 76 kg (05/07/24 10:56 AM) Body Mass Index [18.5-24.99 kg/m2] 28.6 kg/m2 *H* (05/07/24 10:56 AM) Social History Social History Type Response Smoking Status Former smoker, quit more than 30 days ago; Other: quit a few days ago; entered on: 09/26/23 Sex Sex Representation Female (finding) Implantable Device List Procedure Provider Procedure Date Device Type Site Insertion of Tissue Human Resources District Manager Sasha Stephens MD 04/17/24 Unknown Breast Left Device Identifier Serial Number Lot or Batch Number Manufacturing Date Expiration Date Distinct Identification Code MRI Safety Implantable Status Assigning Authority Unknown [id number] Unknown Unknown 09/04/27 Unknown Unknown Active Unknown Procedure Provider Procedure Date Device Type Site Insertion of Tissue Human Resources District Manager Sasha Stephens MD 01/31/24 Unknown Breast Left Device Identifier Serial Number Lot or Batch Number Manufacturing Date Expiration Date Distinct Identification Code MRI Safety Implantable Status Assigning Authority Unknown [id number] Unknown Unknown 01/15/27 Unknown Unknown Active Unknown Unknown [id number] Unknown Unknown 01/15/27 Unknown Unknown Active Unknown Patient Care team information Care Team Personnel Name: Kaitlin Zhang Position: [facility] Associate Professional Member Role: Lif[employer] Consulting Provider Address: [address] [place] [address] Plastic & Reconstructive Surgery [place], [place] [address] Telecom: Name: Chelo Michel Position: Reference Physician Member Role: PCP Address: [address] [place] [id number] Telecom: Name: Caroline Colon RN Position: [facility] RN Member Role: Primary Care Nurse Care Team Related Persons Name: COLEEN AGUILLON Insurance Providers Guarantor name: [employer] Health Plan Information #: 1 Payer: [employer] Member Number: [id number] Policy Number: NA Group Number: NA Health Plan Information #: 2 Payer: [employer] Member Number: [id number] Policy Number: NA Group Number: NA
--- OUTSIDE RECORDS SUMMARY | 2024-06-05 11:16 | XMS_ITS | Continuity of Care Document ---
Author Organization [facility] Cecile angel Address [address] [place] [address] [address] [place] [address]- Care Team Providers Care Clinical Field Specialist Name Role Phone Chelo Michel Primary Care Physician [phone] [place] [facility] Date(s): 05/02/24 - 06/01/24 [facility] [address] [place] [address]- Encounter Type: Triage Allergies, Adverse Reactions, Alerts Substance Criticality Severity [...] AM EST, Aerosol, Route to Pharmacy Electronically, [id number], [facility], 163, cm, 04/12/23 8:55:00 EST, Height, 73, kg, 02/23/23 23:55:00 EDT, Dry Weight Start Date: 04/12/23 Status: Ordered Quantity: 8.5 Unit: g Repeat number: 4 anastrozole 1 mg oral tablet 1 tablet = 1 mg, By Mouth, Daily, # 30 tablet, 2 Refills, Maintenance, 10/31/23 9:47:00 AM EDT, Tablet, [facility], Partial fill upon patient request [...] Refills, Maintenance, 06/13/23 1:52:00 PM EST, Tablet, [facility], Partial fill upon patient request [...] 0 Refills, Maintenance, 12/09/23 8:08:00 AM EDT, [facility], 160.4, cm, 11/16/23 14:20:00 EDT, Height, 79.7, kg, 10/31/23 8:48:00 EDT, Dry Weight Start Date: 12/09/23 Status: Ordered Quantity: 30.0 Unit: tablet Repeat number: 1 rOPINIRole 3 mg oral tablet 1 tablet = 3 mg, By Mouth, Daily at bedtime, # 90 tablet, 2 Refills, Maintenance, 10/22/21 8:40:00 AM EDT, [facility], Partial fill upon patient request if the prescription is for a schedule II opioid drug. Start Date: 10/22/21 Status: Ordered Quantity: 90.0 Unit: tablet Repeat number: 3 Vitamin D3 1000 intl units oral capsule 1 capsule = 25 mcg, By Mouth, Daily, # 100 capsule, 3 Refills, Maintenance, 04/12/23 9:11:00 AM EST,Capsule, [facility], Partial fill upon patient request [...] Confirmed Active Vitamin D deficiency Confirmed Active Social History Social History Type Response Smoking Status Former smoker, quit more than 30 days ago; Other: quit a few days ago; entered on: 09/26/23 Sex Sex Representation Female (finding) Implantable Device List Procedure Provider Procedure Date Device Type Site Insertion of Tissue Glue Maker Sasha Stephens MD 04/17/24 Unknown Breast Left Device Identifier Serial Number Lot or Batch Number Manufacturing Date Expiration Date Distinct Identification Code MRI Safety Implantable Status Assigning Authority Unknown [id number] Unknown Unknown 09/04/27 Unknown Unknown Active Unknown Procedure Provider Procedure Date Device Type Site Insertion of Tissue Glue Maker Sasha Stephens MD 01/31/24 Unknown Breast Left Device Identifier Serial Number Lot or Batch Number Manufacturing Date Expiration Date Distinct Identification Code MRI Safety Implantable Status Assigning Authority Unknown [id number] Unknown Unknown 01/15/27 Unknown Unknown Active Unknown Unknown [id number] Unknown Unknown 01/15/27 Unknown Unknown Active Unknown Patient Care team information Care Team Personnel Name: Kaitlin Zhang Position: [facility] Associate Professional Member Role: Lifetime Consulting Provider Address: [address] [place] [address] Plastic & [place] [address]- Telecom: Name: Chelo Michel Position: Reference Physician Member Role: PCP Address: [address] [place] [phone]- Telecom: Name: Caroline Colon RN Position: [facility] RN Member Role: Primary Care Nurse Care Team Related Persons Name: COLEEN AGUILLON Insurance Providers Guarantor name: [facility] Information #: 1 Payer: [employer] Member Number: NA Policy Number: NA Group Number: NA
--- OUTSIDE RECORDS SUMMARY | 2024-06-05 11:16 | XMS_ITS | Continuity of Care Document ---
Author Organization [facility] [place] Address [address] [place] [address]- Care Team Providers Care Transportation Assistant Name Role Phone Chelo Michel Primary Care Physician Encounter [facility] Date(s): 04/22/24 - 05/22/24 [facility] [place] [address] [place], [place] [address] Attending Physician: Олег Miller Admitting Physician: AdmtrОлег Referring Physician: Admtr Ar8 Encounter Type: Triage Allergies, Adverse Reactions, Alerts [...] AM EST, Aerosol, Route to Pharmacy Electronically, [id number], [facility], 163, cm, 04/12/23 8:55:00 EST, Height, 73, kg, 02/23/23 23:55:00 EDT, Dry Weight Start Date: 04/12/23 Status: Ordered Quantity: 8.5 Unit: g Repeat number: 4 anastrozole 1 mg oral tablet 1 tablet = 1 mg, By Mouth, Daily, # 30 tablet, 2 Refills, Maintenance, 10/31/23 9:47:00 AM EDT, Tablet, [facility], Partial fill upon patient request [...] Refills, Maintenance, 06/13/23 1:52:00 PM EST, Tablet, [facility], Partial fill upon patient request [...] 0 Refills, Maintenance, 12/09/23 8:08:00 AM EDT, [facility], 160.4, cm, 11/16/23 14:20:00 EDT, Height, 79.7, kg, 10/31/23 8:48:00 EDT, Dry Weight Start Date: 12/09/23 Status: Ordered Quantity: 30.0 Unit: tablet Repeat number: 1 rOPINIRole 3 mg oral tablet 1 tablet = 3 mg, By Mouth, Daily at bedtime, # 90 tablet, 2 Refills, Maintenance, 10/22/21 8:40:00 AM EDT, [facility], Partial fill upon patient request if the prescription is for a schedule II opioid drug. Start Date: 10/22/21 Status: Ordered Quantity: 90.0 Unit: tablet Repeat number: 3 Vitamin D3 1000 intl units oral capsule 1 capsule = 25 mcg, By Mouth, Daily, # 100 capsule, 3 Refills, Maintenance, 04/12/23 9:11:00 AM EST,Capsule, [facility], Partial fill upon patient request [...] Date Device Type Site Insertion of Tissue Mechanical Expert Sasha Stephens MD 04/17/24 Unknown Breast Left Device Identifier Serial Number Lot or Batch Number Manufacturing Date Expiration Date Distinct Identification Code MRI Safety Implantable Status Assigning Authority Unknown [id number] Unknown Unknown 09/04/27 Unknown Unknown Active Unknown Procedure Provider Procedure Date Device Type Site Insertion of Tissue Mechanical Expert Sasha Stephens MD 01/31/24 Unknown Breast Left Device Identifier Serial Number Lot or Batch Number Manufacturing Date Expiration Date Distinct Identification Code MRI Safety Implantable Status Assigning Authority Unknown [id number] Unknown Unknown 01/15/27 Unknown Unknown Active Unknown Unknown [id number] Unknown Unknown 01/15/27 Unknown Unknown Active Unknown Patient Care team information Care Team Personnel Name: Kaitlin Zhang Position: [facility] Associate Professional Member Role: Lifetime Consulting Provider Address: [address] [place] [address] Plastic & [place] [address]- Telecom: Name: Chelo Michel Position: Reference Physician Member Role: PCP Address: [address] [place] [address]- Telecom: Name: Caroline Colon RN Position: [facility] RN Member Role: Primary Care Nurse Care Team Related Persons Name: COLEEN AGUILLON Insurance Providers Guarantor name: [facility] Information #: 1 Payer: [employer] Member Number: NA Policy Number: NA Group Number: NA
--- OUTSIDE RECORDS SUMMARY | 2024-06-05 11:17 | XMS_ITS | Patient Health Record ---
Author Organization [facility] Address [address] [place] [address] Care Team Providers Care Hotel Casino Floorperson Name Role Phone Iram Davidson Primary Care Provider Allergies Allergen (clinical drug ingredient) Drug/Non Drug Allergy documented on EMR Reaction Allergy Type Onset Date Status codeine Codeine Sulfate Unknown Drug Allergy A ctive gabapentin Gabapentin Unknown Drug Allergy Activ e Reason For Referral No Information Medications Medication SIG (Take, Route, Frequency, Duration) Notes Start Date End Date Status Ferrous Sulfate 325 (65 Fe) MG 1 tablet Orally Once a day A ctive rOPINIRole HCl 1 MG 1-3 tablets Orally q hs for 90 days Active Social History Tobacco Use: Social History Observation Description Date Details (start date - stop date) Current Smoker NA - NA Tobacco Use/Smoking Question Answer Notes Are you a current smoker Problems Problem Type SNOMED Code ICD Code Onset Dates Problem Status W/U Status Risk Notes Problem 186989037 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 Problem 76912286 Unspecified inflammatory spondylopathy, 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) Active confirmed Problem 041939976 Spondylosis with out myelopathy or radiculopathy, lumbar region (M47.816) Active confirmed Problem 59142639 Urge incontinenc e (N39.41) Active confirmed Problem 306663941 Tobacco abuse (Z72.0) Active confirmed Problem 2323732 Arthritis (M19.90) Active confirmed Problem 128446123 Status post zandra mack bypass for obesity (Z98.84) Active confirmed Problem 65094654 Primary osteoarthritis of first carpometacarpal joint of left hand (M18.12) Active confirmed Plan Of Treatment Pending Test Test Name Order Date Vitamin D, 25-Hydroxy 06/26/2020 Insurance Providers Payer Name Payer Address Payer Phone Subscriber Number Group Number Insured Name Patient Relationship to Insured Coverage Start Date Coverage End Date [place] [address] [address] [place] [phone] [id number] Mechelle Sher Self - patient is the insured Medical (General) History Medical History History ICD Code Bariatric surgery status Z98.84 Vitamin B12 deficiency E53.8 Hyponatremia E87.1 Iron deficiency E61.1 Restless legs syndrome G25.81 Urge incontinence N39.41 Psoriasis L40.9 Arthritis M19.90 Post gastric bypass 1989 Asthma 2 miscarriages Surgical History Surgery Date(Month/Year) gastic bypass 1985 ruptured hernia 1986 thumb joints replaced 2014 gall bladder removal 1985 Post gastric bypass 1989 wit h significant weight loss that has been maintained Carpal tunnel release 2013 [facility] repaired September 2014. 09/2014 Hospitalization History Reason Date(Month/Year) low sodium 2017
== END 2024-06-05 10:30 | disposition home or self-care (01) ==
PROVIDERS: PCP Physician Assistant; Visit Provider Physician Assistant
DX: C50.912 Malignant neoplasm of unspecified site of left female breast (principal); N28.89 Other specified disorders of kidney and ureter; Z98.84 Bariatric surgery status; E53.9 Vitamin B deficiency, unspecified; D50.9 Iron deficiency anemia, unspecified; L98.7 Excessive and redundant skin and subcutaneous tissue

== ENCOUNTER → 2024-06-05 09:38 | Outpatient (BNVA) | payer SELFPAY | PROVIDERS: PCP Physician Assistant; Visit Provider Physician Assistant | DX: C50.912 Malignant neoplasm of unspecified site of left female breast (principal); N28.89 Other specified disorders of kidney and ureter; E53.9 Vitamin B deficiency, unspecified; D50.9 Iron deficiency anemia, unspecified; L98.7 Excessive and redundant skin and subcutaneous tissue; Z98.84 Bariatric surgery status | CPT/HCPCS: 96127; 99212 ==